=== PATIENT | female | born 1955 | race Two or more races ===

== ENCOUNTER → 2018-01-05 09:45 | Outpatient (CLI) | payer BC, SELFPAY ==
--- NOTE | 2018-01-05 09:45 | MISC_PTH ---
PATIENT: STEFANIE JONES LOC: [facility] U#:[id number] AGE/SX: 69/F ROOM: RE01/05/[address]: Dr. Bradley Barrientos DDS : 1955 BED: DIS: SPEC #: [id number] RECD: 01/08/18 10:29 STATUS: BARBARA YOSSI #: [id number] CRIS: 01/05/18 09:[address]: Bradley Barrientos DEPT: SURGICAL PATHOLOGY RECD BY: Almas Shipley Tissues: Maxilla, NOS Procedures: Special Stain Group I Surgery Specimen Level IV AFB Stain (control) GMS Stain (control) HEADER OPERATION: Biopsy right maxilla PRE-OP DIAGNOSIS: Chronic infection, well localized TISSUE SUBMITTED: Right maxilla, some necrotic bone removed MICROSCOPIC DIAGNOSIS Lesion of right maxilla, biopsy: Soft tissue with acute and chronic inflammation and granulation. Reactive squamous epithelium. Negative for acid-fast bacilli and fungal organisms. AM:lasha 01/09/18 COMMENT Case has been reviewed in consultation with Dr. Puente who concurs with the above diagnosis. IDC:JOHN MICROSCOPIC DESCRIPTION Slides are reviewed. GROSS DESCRIPTION Received in fixative is one container labeled with the patient's name and designated right maxilla. The specimen consists of an irregular piece of north soft tissue measuring 0.6 x 0.6 x 0.2 cm. The specimen is totally submitted in one cassette. / JOHN:lasha 01/08/18 TC:2 CPT: 26779, 46123 x2
== END ==
PROVIDERS: Referring Provider Dentist Oral and Maxillofacial Surgery; Visit Provider Dentist Oral and Maxillofacial Surgery
DX: J32.0 Chronic maxillary sinusitis (principal)
CPT/HCPCS: 88305; 88312